=== PATIENT | male | born 1960 ===

== ENCOUNTER 2023-08-17 10:25 | Outpatient (CLI) | payer OTHER ==
[~2023-08-17] VITALS: Ht 177.8 cm; Wt 95.3 kg
[~2023-08-17 10:25] MED LIST: GADOTERATE MEGLUMINE 7.5 MMOL/15 ML VIAL IV ONE
== END 2023-08-17 23:59 | disposition home or self-care (01) ==
LOC: MRI 10:25 → EEVIPCON 11:00 → MRI 23:59
PROVIDERS: ATTEND Physician Assistant Medical
DX: R22.1 Localized swelling, mass and lump, neck (principal)
CPT/HCPCS: 70543; A9575